=== PATIENT | male | born 1975 | race Caucasian/White ===

== ENCOUNTER 2020-09-16 12:03 | Inpatient (IN) | payer OTHER ==
[~2020-09-16] VITALS: Ht 172.7 cm; Wt 73.7 kg
[2020-09-16 12:33] VITALS: BP 100/56
[2020-09-16 13:22] LABS: WHITE BLOOD COUNT 10.1 10*3/uL (4.8-10.8)
[2020-09-16 13:38] LABS: ALBUMIN 3.6 gm/dl (3.1-4.5); ALKALINE PHOSPHATASE 116 U/L (45-117); BUN 9 mg/dl (7-24); CHLORIDE 103 mmol/L (98-107); CREATININE 1.16 mg/dL (0.70-1.30); POTASSIUM 4.7 mmol/L (3.5-5.1); SGOT/AST 7 IU/L (3-35); SGPT/ALT 17 U/L (12-78); SODIUM 137 mmol/L (136-145); TOTAL PROTEIN 7.4 gm/dL (6.4-8.2)
[2020-09-16 13:40] LABS: ETHYL ALCOHOL < 3.0 mg/dl (<3)
[2020-09-16 13:51] LABS: BASO # 0.1 10*3/uL (0.0-0.1); BASO % 0.6 % (0.0-1.0); EOS # 0.2 10*3/uL (0.0-0.4); HEMATOCRIT 44.8 % (42.0-52.0); LYMPH # 2.4 10*3/uL (1.3-4.4); LYMPH % 23.7 % (27.0-41.0); MEAN CELL VOLUME 89.2 fl (80.0-94.0); MEAN CORPUSCULAR HGB 27.7 pg (27.0-31.0); MEAN PLATELET VOLUME 11.4 fl (9.6-12.3); MONO # 0.5 10*3/uL (0.1-1.0); MONO % 5.4 % (3.0-9.0); NEUT # 6.8 10*3/uL (2.3-7.9); NEUT % 67.6 % (47.0-73.0); PLATELET COUNT AUTOMATED 329 10*3/uL (130-400); RED BLOOD COUNT 5.02 10*6/uL (4.50-5.90); RED CELL DISTRI WIDTH 14.1 % (0-14.5)
[2020-09-16 16:00] VITALS: BP 113/53
[2020-09-16 16:27] LABS: BILIRUBIN Negative (Negative); BLOOD Negative (Negative); CLARITY Clear (Clear); COLOR Yellow (Yellow); GLUCOSE Negative (Negative); KETONE Negative (Negative); LEUKO ESTERASE 1+ (Negative); NITRITE Negative (Negative); SPECIFIC GRAVITY 1.015 (1.001-1.030); UROBILINOGEN 0.2 E.U./dl (0.0-1.0)
[2020-09-16 16:44] LABS: URINE AMPHETAMINES < 1000 (1000ng/ml); URINE BARBITURATES < 200 (200ng/ml); URINE BENZODIAZEPINES < 200 (200ng/ml); URINE CANNABINOIDS (THC) < 50 (50ng/ml); URINE COCAINE > 300 (300ng/ml); URINE METHADONE < 300 (300ng/ml); URINE OPIATES < 300 (300ng/ml)
[2020-09-16 16:46] LABS: URINE PHENCYCLIDINE < 25 (25ng/ml)
[2020-09-16 17:09] LABS: BACTERIA TRACE; WBC 16-20 wbc/hpf (0-5); YEAST TRACE
[2020-09-16 20:00] VITALS: BP 125/55
[2020-09-17] VITALS: BP 135/60
[2020-09-17 08:00] VITALS: BP 123/88
[2020-09-17 12:00] VITALS: BP 133/80
== END 2020-09-17 16:49 | disposition left against medical advice (07) | DRG 770 ==
LOC: 4E 12:03
PROVIDERS: Registered Nurse; ADMIT Internal Medicine; ATTEND Internal Medicine
DX: F11.10 Opioid abuse, uncomplicated (principal); F41.9 Anxiety disorder, unspecified; F14.90 Cocaine use, unspecified, uncomplicated; F17.210 Nicotine dependence, cigarettes, uncomplicated; L03.114 Cellulitis of left upper limb; L02.414 Cutaneous abscess of left upper limb; Z80.3 Family history of malignant neoplasm of breast; Z80.0 Family history of malignant neoplasm of digestive organs; Z53.29 Procedure and treatment not carried out because of patient's decision for other reasons